=== PATIENT | male | born 1960 | race Caucasian/White ===

== ENCOUNTER 2017-10-28 11:43 | Inpatient (IN) | payer MEDICAID, OTHER ==
[~2017-10-28] VITALS: Ht 185.4 cm; Wt 78.0 kg
--- NOTE | 2017-10-28 11:43 | NUR ---
PATIENT BIBA TO BED 4 AT THIS TIME.
[2017-10-28 11:46] VITALS: BP 116/55
--- NOTE | 2017-10-28 12:00 | NUR ---
PATIENT [place], PT WENT TO A HOUSE, ASKED FOR SOMEONE TO CALL 911-:NOT FEELING GOOD" PT AA0 X 3, STATES HE HAS BEEN WALKING FOR 3 WEEKS, TRYING TO GET BACK HOME FROM [place]. DENIES ANY PAIN. JUST REPORTS BEING TIRED AND THIRSTY. SKIN HOT TO TOUCH, DRY, SUN BURNING NOTED TO NECK AREA. PT WITH NOTICEABLE SLURRED SPEECH, STATES HE ALWAYS TALKS LIKE THAT. NO OBVIOUS FACIAL DROOP. MOVING ALLEXTREMITIES WNL. AMBULATORY IN SCENE. BS-90MG/DL IN SCENE. DENIES N/V/D; LUNGS CLEAR BL; HR EVEN AND REGULAR; PT DENIES ANY FEVER, CP, SOB, OR COUGH AT THIS TIME; DENIES PAIN; VSS; PATIENT POSITIONED FOR COMFORT; HOB ELEVATED; BEDRAILS UP X2; BED DOWN. ER MD MADE AWARE OF PT STATUS.
--- NOTE | 2017-10-28 12:08 | NUR ---
Patient being evaluated by physician at bedside.
[2017-10-28] MEDS ORDERED: NACL 0.9% 2,000 ML IV SCH (12:39)
--- NOTE | 2017-10-28 13:27 | NUR ---
PT BACK FROM CT SCAN
[2017-10-28 13:33] LABS: HEMATOCRIT 39.6 % (36-52); HEMOGLOBIN 12.9 g/dL (12.0-18.0); MEAN CORPUSCULAR HEMOGLOBIN 31 pg (27-31); MEAN CORPUSCULAR HGB CONC 32 g/dL (33-37); MEAN CORPUSCULAR VOLUME 96.7 fL (80-94); PLATELET COUNT (AUTO) 282 K/uL (140-450); RED CELL DISTRIBUTION WIDTH 14.1 % (11.6-13.7); WHITE BLOOD COUNT (AUTO) 6.3 K/uL (4.8-10.8)
[2017-10-28 13:34] LABS: BASOPHILS # (AUTO) 0.1 K/uL (0.00-0.22); BASOPHILS % (AUTO) 1.2 % (0.0-2.0); EOSINOPHILS % (AUTO) 0.6 % (0.0-4.0); LYMPHOCYTES % (AUTO) 15.1 % (20.5-51.1); MONOCYTES # (AUTO) 0.5 K/uL (0.8-1.0); MONOCYTES % (AUTO) 8.1 % (1.7-9.3); NEUTROPHILS # (AUTO) 4.7 K/uL (1.8-7.7)
[2017-10-28 13:43] LABS: PROTHROMBIN TIME 10.7 secs (10.8-13.4)
[2017-10-28 13:57] LABS: ACETONE, SERUM NEGATIVE (NEGATIVE); MAGNESIUM 1.9 mg/dL (1.8-2.4)
[2017-10-28 14:03] LABS: ANION GAP 12.1 (8-16); CARBON DIOXIDE 27.7 mmol/L (21-32); CHLORIDE 102 mmol/L (98-107); GFR ARICAN-AMERICAN 100 mL/min (>90); GLUCOSE 78 mg/dL (74-106); POTASSIUM 3.8 mmol/L (3.5-5.1); SODIUM SERUM 138 mmol/L (136-145); TOTAL BILIRUBIN 1.1 mg/dL (0.0-1.0); UREA NITROGEN, BLOOD 19 mg/dL (7-18)
[2017-10-28 14:04] LABS: ACETAMINOPHEN < 0.5 ug/ml (10-30); ALBUMIN 4.5 g/dL (3.4-5.0); ASPARTATE AMINOTRANSFERASE 57 U/L (15-37)
[2017-10-28] MEDS ORDERED: DEXT 5% / NACL 0.45% 1,000 ML IV SCH (15:29)
[2017-10-28] MEDS ORDERED: MORPHINE SULFATE 2 MG/ML SYR IVP PRN (15:30)
[2017-10-28] MEDS ORDERED: ZOLPIDEM 5 MG TAB PO PRN (15:30)
[2017-10-28] MEDS ORDERED: DOCUSATE SODIUM 100 MG GELCAP PO PRN (15:30)
[2017-10-28] MEDS ORDERED: LORazepam 2 MG/ML VIAL IM/IVP PRN (15:30)
[2017-10-28] MEDS ORDERED: ACETAMINOPHEN 325 MG TAB PO PRN (15:30)
[2017-10-28] MEDS ORDERED: HYDROcodone/APAP 5/325 MG 1 TAB TAB PO PRN (15:30)
[2017-10-28] MEDS ORDERED: ONDANSETRON 4 MG/2 ML VIAL IM/IVP PRN (15:30)
--- NOTE | 2017-10-28 16:00 | NUR ---
PT IS AWAKE, TRYING TO PULL OUT IV SITE. REORIENTED PT, PT STATED," I AM FINE, I DONT NEED THIS IV SHIT, I CAN JUST DRINK WATER".
[2017-10-28 16:11] LABS: APPEARANCE,URINE CLEAR (CLEAR); BILIRUBIN,URINE 1+ (NEGATIVE); BLOOD, URINE TRACE-I (NEGATIVE); COLOR,URINE YELLOW (YELLOW); LEUKOCYTE ESTERASE ,URINE NEGATIVE (NEGATIVE); NITRITE, URINE NEGATIVE (NEGATIVE); PH,URINE 5.5 (5.0-9.0); UGLUCOSE NEGATIVE (NEGATIVE)
[2017-10-28] MEDS: NACL 0.9% 1,000 ML IV SCH (16:50)
[2017-10-28 17:00] LABS: BARBITURATE, URINE NEGATIVE ng/ml (NEG <=200); BENZODIAZEPINE, URINE NEGATIVE ng/mL (NEG <=200); CANNABINOID, URINE NEGATIVE ng/mL (NEG <=50); COCAINE, URINE NEGATIVE ng/mL (NEG <=300); OPIATE, URINE NEGATIVE ng/mL (NEG <=2000); PHENCYCLIDINE SCREEN,URINE NEGATIVE ng/mL (NEG <=25)
--- NOTE | 2017-10-28 17:00 | NUR ---
RECEIVED BEDSIDE REPORT FROM FRONT DESK OFFICER FOR CONTINUITY OF CARE. PATIENT IS AAOX4, ABLE TO MAKE NEEDS KNOWN, REFUSES TO BE HOOKED UP TO MONITOR, DOCTOR IS AWARE AND AT BEDSIDE. HE IS ON ROOM AIR. HAS IV SITE TO LEFT FOREARM, 20 GAUGE. PATIENT HAS MULTIPLE SCABS TO FACE. NO SIGNS OF DISTRESS NOTED AT THIS TIME. CALL LIGHT WITHIN REACH, WILL CONTINUE TO MONITOR.
--- NOTE | 2017-10-28 17:00 | NUR ---
Patient will be admitted to care of DR. MCCORMACK. Admited to TELE. Will go to room ICU 5. Belongings list completed. Report to IVORY ZAPATA AT BEDSIDE, PT IS AGITATED, REFUSED TO PUT MONITOR ON, AWARE.
--- NOTE | 2017-10-28 17:50 | NUR ---
TRIED TO START IV FLUIDS ON PATIENT, HOWEVER PATIENT REFUSED, STATED HE DOES NOT WANT ANYTHING IV ONLY WANTS TO DRINK TAP WATER.
[2017-10-28 17:56] LABS: PHOSPHORUS 4.6 mg/dL (2.5-4.9); THYROID STIMULATING HORMONE 1.29 uIU/mL (0.34-3.74)
[2017-10-28 18:31] LABS: MAGNESIUM 1.9 mg/dL (1.8-2.4)
--- NOTE | 2017-10-28 19:13 | NUR ---
ENDORSED BEDSIDE REPORT FOR CONTINUITY OF CARE, PATIENT PRESENTS NO SIGNS OF DISTRESS AT THIS TIME.
--- NOTE | 2017-10-28 19:25 | NUR ---
RECEIVED PT FROM DAY NURSE, WILL CONTINUE TO MONITOR.
[2017-10-28 19:28] LABS: RBC,URINE 0-5 (RARE) /HPF (0-5); WBC,URINE 0-5 (RARE) /HPF (0-5)
--- NOTE | 2017-10-28 19:30 | NUR ---
PT AWAKE SITTING UP IN BED, PT AOX2 DENIES N/V, DIZZINESS, PAIN @ THIS TIME. FOLLOWING COMMANDS. LUNGS CLEAR TO AUSCULTATION. ABD, SOFT NON DISTENDED + ACTIVE SOUNDS, PT VOIDING IN URINAL. IV TO L FOREARM SL REFUSING IVF @ THIS TIME. REFUSING TELE MONITOR WILL CONTINUE TO MONITOR
[2017-10-28 20:00] VITALS: BP 110/65
--- NOTE | 2017-10-28 20:00 | NUR ---
PT CONTINUES TO REFUSE ECG AND PULSE OXIMETER. PT AGREEABLE FOR BLOOD PRESSURE CUFF WILL CONTINUE TO MONITOR.
--- NOTE | 2017-10-28 21:10 | NUR ---
PT REFUSING TO SIGN ADMITTING PAPERWORK @ THIS TIME, CONTACTED ADMITTING, RODERICK LINDSAY STATED CASE MANAGEMENT TO FOLLOW UP TOMORROW IN AM
--- NOTE | 2017-10-29 00:55 | NUR ---
PT ASLEEP IN BED, AROUSABLE NO S/S OF ACUTE DISTRESS NOTED. WILL CONTINUE TO OBSERVE
[2017-10-29] MEDS: NACL 0.9% 1,000 ML IV SCH (02:50)
[2017-10-29 04:00] VITALS: BP 105/72
--- NOTE | 2017-10-29 04:00 | NUR ---
PT AWAKE, BATH GIVEN, LINEN CHANGED. PT CONTINUES TO MUMBLE AND TALK TO HIMSELF. NO S/ SOF ACUTE DISTRESS NOTED. WILL CONTINUE TO OBSERVE.
--- NOTE | 2017-10-29 06:30 | NUR ---
PT CONTINUES TO REFUSE ECG, SPO2 MONITOR WELL BLOOD PRESSURE CUFF. NO S/S OF DISTRESS NOTED. PT DENIES PAIN @ THIS TIME. WILL CONTINUE TO MONITOR.
[2017-10-29 06:42] LABS: ANION GAP 9.9 (8-16); CARBON DIOXIDE 27.7 mmol/L (21-32); CREATININE 0.7 mg/dL (0.7-1.3); POTASSIUM 3.6 mmol/L (3.5-5.1)
[2017-10-29 07:13] LABS: MAGNESIUM 1.6 mg/dL (1.8-2.4); PHOSPHORUS 3.1 mg/dL (2.5-4.9)
--- NOTE | 2017-10-29 07:30 | NUR ---
REPORT GIVEN TO DAY SHIFT. ORDERS ENDORSED FOR CONTINUITY OF CARE.
--- NOTE | 2017-10-29 07:35 | NUR ---
PT TRANSFERRED VIA WHEELCHAIR TO [facility] ROOM 108B SAFELY ON STABLE CONDITION. BED SIDE REPORT GIVEN TO BARBARA DODSON. HANDED ALL BELONGINGS AND CHART TO NURSE.
--- NOTE | 2017-10-29 07:36 | NUR ---
RECEIVED BEDSIDE REPORT FROM ICU NURSE. PATIENT IS AWAKE, ALERT AND ORIENTEDX3. HE STATES HE IS AT A HOSPITAL BUT SAID [facility]. REORIENTED ON [facility]. PATIENT IS HOMELESS. PATIENT AMBULATED FROM WHEELCHAIR TO BED, GAIT IS UNSTEADY. REFUSING IVF AT THIS TIME. IV AT L AC 20G SALINE LOCK. SCABS ON BACK AND NOSE. EDUCATED ON THE IMPORTANCE OF IVF. PATIENT STILL REFUSED. URINAL AT BEDSIDE. CALL LIGHT WITHIN REACH. WILL CONTINUE TO MONITOR THE PATIENT.
[2017-10-29 07:38] LABS: EOSINOPHILS % (AUTO) 2.5 % (0.0-4.0); HEMOGLOBIN 11.5 g/dL (12.0-18.0); LYMPHOCYTES % (AUTO) 21.2 % (20.5-51.1); MEAN CORPUSCULAR HEMOGLOBIN 32 pg (27-31); MEAN CORPUSCULAR HGB CONC 33 g/dL (33-37); MEAN CORPUSCULAR VOLUME 97.6 fL (80-94); MONOCYTES % (AUTO) 10.9 % (1.7-9.3); NEUTROPHILS % (AUTO) 64.4 % (42.2-75.2); PLATELET COUNT (AUTO) 237 K/uL (140-450); RED BLOOD CELL COUNT(AUTO) 3.59 MIL/uL (4.20-6.10); RED CELL DISTRIBUTION WIDTH 13.6 % (11.6-13.7); WHITE BLOOD COUNT (AUTO) 5.7 K/uL (4.8-10.8)
[2017-10-29 08:00] VITALS: BP 101/62
[2017-10-29 08:07] LABS: CHOL/HDL RATIO 2.6 (1-4.5)
[2017-10-29 08:16] LABS: CKMB RELATIVE INDEX 2.9 (0.0-2.5); CREATINE KINASE MB 13.4 ng/mL (0-3.6)
[2017-10-29 08:29] LABS: T4 (THYROXINE) 6.2 ug/dL (4.5-12.0)
--- NOTE | 2017-10-29 09:00 | NUR ---
PATIENT IN BED MUMBLING TO HIMSELF. NO COMPLAINTS AT THIS TIME. WILL CONTINUE TO MONITOR THE PATIENT.
--- NOTE | 2017-10-29 10:00 | NUR ---
PATIENT ARGUING WITH PATIENT NEXT DOOR. HE STARTED SCREAMING AT THE PATIENT NEXT DOOR AND TELLING HIM "YOU PROBABLY DONT EVEN KNOW HOW TO READ OR WRITE" BOTH PATIENTS STARTED ARGUING. TOLD BOTH OF THEM TO SETTLE DOWN. LEFT WHEN PATIENTS STOPPED ARGUING.
--- NOTE | 2017-10-29 10:33 | NUR ---
PATIENT HAS BEEN SCREENED AND CATEGORIZED MODERATE NUTRITION RISK. PATIENT WILL BE SEEN WITHIN 3-5 DAYS OF ADMISSION. 10/31/17 11/02/[address]
--- NOTE | 2017-10-29 11:00 | NUR ---
PATIENT CONTINUES TO MUMBLE. HE MUMBLES TO HIMSELF CONSTANTLY. PATIENT HAS NO COMPLAINTS AT THIS TIME. WILL CONTINUE TO MONITOR THE PATIENT.
--- NOTE | 2017-10-29 13:00 | NUR ---
PATIENT SLEEPING. NO SIGNS OF DISTRESS ON ROOM AIR. BED IN LOW POSITION. WILL CONTINUE TO MONITOR THE PATIENT.
--- NOTE | 2017-10-29 13:45 | NUR ---
CM NOTE PER MACHINE COMPOSITOR CHANCE, REVIEWS SHOULD ONLY BE SENT TO [phone] # [phone] [facility] INITIAL REVIEW FAXED TO [phone] # [phone] [facility]
--- NOTE | 2017-10-29 14:00 | NUR ---
GAVE PATIENT A NEW PAIR OF SOCKS AND TOWELS TO CLEAN HIMSELF UP. PATIENT ABLE TO DO ADLS.
[2017-10-29 16:00] VITALS: BP 115/52
--- NOTE | 2017-10-29 16:00 | NUR ---
DR HAIDER SAW THE PATIENT AND SAID HE MEETS CRITERIA FOR 5150 HOLD. PATIENT STATES HE WAS KIDNAPPED BY A SALT REFINER AND THEY SENT HIM HERE TO [facility]. HE ALSO STATES HE HAS TRILLONS OF DOLLARS IN THE BANK AND THEY WONT ALLOW HIM TO GET A HOLD OF IT. DR HAIDER SAID TRANSFER TO IN PATIENT PSYCH ONCE MEDICALLY CLEARED
--- NOTE | 2017-10-29 18:00 | NUR ---
PATIENT WALKING BACK AND FOURTH IN THE ROOM. HE WANTS TO CHANGE THE CHANNEL. EDUCATED PATIENT ON HOW TO USE CONTROL.
--- NOTE | 2017-10-29 19:10 | NUR ---
GAVE BEDSIDE REPORT TO BISQUE CLEANER NURSE. PATIENT ENDORSED IN STABLE CONDITION.
--- NOTE | 2017-10-29 19:10 | NUR ---
RECEIVED PT REPORT FROM DAY SHIFT NURSE AT BEDSIDE. PT UP AND STANDING NEXT TO BED. IV ACCESS IN L AC. PT CURRENTLY REFUSING ANY IV FLUIDS. PT IS A/OX4. PT ON RA. SCABS NOTED ON PT BACK AND NOSE. REDNESS ON NOTED ON BUTTOCKS AREA. BED IS LOCKED, LOWEST POSITION AND SIDE RAILS UP X2. CALL LIGHT WITHIN PT REACH. BOARD UPDATED. WILL CONTINUE TO MONITOR PT.
[2017-10-29] MEDS: QUEtiapine FUMARATE 25 MG TAB PO SCH (21:00)
--- NOTE | 2017-10-29 21:38 | NUR ---
MEDICATION, SEROQUEL NOT ADMINISTERED D/T PT REFUSAL.
--- NOTE | 2017-10-29 22:35 | NUR ---
PT ASLEEP IN BED. NO S/SX OF DISTRESS. WILL CONTINUE TO MONITOR.
[2017-10-30] VITALS: BP 120/70
--- NOTE | 2017-10-30 00:50 | NUR ---
PT ASLEEP IN BED. NO S/SX OF DISTRESS. WILL CONTINUE TO MONITOR.
--- NOTE | 2017-10-30 02:44 | NUR ---
PT IS UP SITTING IN CHAIR . NO S/SX OF DISTRESS. ALL NEEDS ARE MET AT THIS TIME. WILL CONTINUE TO MONITOR PT.
--- NOTE | 2017-10-30 04:54 | NUR ---
PT ASLEEP IN BED. NO S/S OF DISTRESS. WILL CONTINUE TO MONITOR.
--- NOTE | 2017-10-30 07:30 | NUR ---
ENDORSED PT TO DAY SHIFT NURSE FOR CONTINUITY OF CARE. PT IN STABLE CONDITION.
--- NOTE | 2017-10-30 07:31 | NUR ---
RECEIVED BEDSIDE REPORT FROM ELECTRICAL SERVICE TECHNICIAN NURSE. PATIENT IS AWAKE, ALERT AND ORIENTEDX3. NO SIGNS OF DISTRESS ON ROOM AIR. ELECTRICAL SERVICE TECHNICIAN SAID HES BEEN REFUSING EVERYTHING. SKIN HAS SCABS ON BACK AND NOSE. HE IS A MED SURGE PATIENT. L AC 20G IS SALINE LOCK, PATIENT ALSO REFUSED FLUIDS YESTERDAY. HE STATES HE KEEPS HIMSELF HYDRATED. PATIENT REFUSED FALL RISK PROTOCOL. DOES NOT WANT YELLOW GOWN, SOCKS, OR ID BAND. EDUCATED ON THE IMPORTANCE AND HE STILL REFUSED. BED IN LOW POSITION. CALL LIGHT WITHIN REACH, WILL CONTINUE TO MONITOR THE PATIENT.
--- NOTE | 2017-10-30 08:00 | NUR ---
PATIENT REFUSED VITALS. EDUCATED ON THE IMPORTANCE OF VITALS. STILL REFUSED. MUMBLING THAT THE FOOD SUCKS AND HE JUST WANTS TO LEAVE.
--- NOTE | 2017-10-30 08:16 | NUR ---
PATIENT ATTEMPTING TO LEAVE, CALLED HIM MR COWART AND SAID YOU HAVE TO COME BACK. PATIENT SAID I DONT KNOW WHO YOURE CALLING MY NAME IS DANTE. I SAID OK DANTE YOU HAVE TO COME BACK. HE REFUSED AND CONTINUED WALKING. CALLED SECURITY, SECURITY WAS NO ABLE TO GET THE PATIENT. PATIENT WALKED OUT, KEELY TORRES ON THE PHONE WITH ME.
--- NOTE | 2017-10-30 08:22 | NUR ---
KEELY TORRES SAID THEY WILL GET AN OFFICER SOON POSSIBLE
[2017-10-30] MEDS: QUEtiapine FUMARATE 25 MG TAB PO SCH (09:00)
[2017-10-30] MEDS ORDERED: MAGNESIUM OXIDE 400 MG TAB PO SCH (09:34)
--- NOTE | 2017-10-30 10:23 | NUR ---
KEELY TORRES HERE TO HAVE A DOG SWEEP THE ROOM AND SNIFF THE PATIENTS BELONGINGS HE LEFT. PATIENT FOUND BY PD, PATIENT IS CURRENTLY WILL PD AND WILL AWAIT HIS ARRIVAL BACK.
--- NOTE | 2017-10-30 11:21 | NUR ---
UPDATE FROM OFFICE ANTHONY THEY THOUGHT THEY FOUND HIM BUT WRONG DILMA. PATIENT STILL REPORTED MISSING PERSON. THEY SAID IF HE COMES BACK TO CALL THEM AND UPDATE HIM. THEY ARE STILL LOOKING FOR HIM
--- NOTE | 2017-10-30 12:00 | NUR ---
PATIENTS INSURANCE COMPANY CALLED I GAVE THEM AN UPDATE OF THE ELOPEMENT. SHE SAID SHE WILL CALL THE PCP AND SEE IF THEY HAVE ANY INFORMATION ON FAMILY OR FRIENDS. GAVE HER MY DIRECT NUMBER
--- NOTE | 2017-10-30 12:29 | NUR ---
CONCURRENT REVIEW FAXED TO FAX [phone]
--- NOTE | 2017-10-30 12:30 | NUR ---
OSMIN IS THE MOM [phone]. THE MOM ANSWERED SHE GOT MY INFORMATION DOWN IN CASE THE PATIENT SHOWS UP. SHE SAID SHE WILL CALL THE FIELD SUPERVISOR [employer] IF HE SHOWS UP.
--- NOTE | 2017-10-30 12:36 | NUR ---
PATIENT ELOPED. PD HAVE HIM MISSING PERSON. POLICE SAID THEY WILL CONTINUE TO LOOK FOR HIM AND HIS MOM SAID SHE WILL UPDATE ME
--- NOTE | 2017-11-01 15:47 | NUR ---
DISCHARGE SUMMARY FAXED TO [phone]
== END 2017-10-30 08:20 | disposition left against medical advice (07) | DRG 815 ==
LOC: MED 11:43 → MIC 15:33 → MTU 10-29 07:44
PROVIDERS: ADMIT General Practice; ATTEND General Practice
DX: T67.5XXA Heat exhaustion, unspecified, initial encounter (principal); G93.41 Metabolic encephalopathy; E86.0 Dehydration; E66.3 Overweight; F20.9 Schizophrenia, unspecified; E11.9 Type 2 diabetes mellitus without complications; F17.210 Nicotine dependence, cigarettes, uncomplicated; Z68.26 Body mass index [BMI] 26.0-26.9, adult; Z59.0 Homelessness; X30.XXXA Exposure to excessive natural heat, initial encounter; Y93.89 Activity, other specified; Y92.89 Other specified places as the place of occurrence of the external cause; Y99.8 Other external cause status
CPT/HCPCS: 36415; 36600; 70450; 71045; 80048; 80053; 80305; 81001; 82009; 82150; 82550; 82553; 82803; 83036; 83605; 83690; 83735; 83880; 84100; 84134; 84436; 84443; 84484; 85025; 85610; 85730; 87040; 87081; 87086; 93005; 96360; 99285; G0480; G0482; J7030